=== PATIENT | male | born 1965 | race Two or more races ===

== ENCOUNTER 2020-02-11 12:17 | Outpatient (CLI) | payer OTHER | END 2020-02-11 16:47 | disposition home or self-care (01) | LOC: OFIC 805 12:17 | PROVIDERS: ATTEND Otolaryngology | DX: R51 Headache (principal); H61.23 Impacted cerumen, bilateral; R09.81 Nasal congestion; J34.2 Deviated nasal septum ==

== ENCOUNTER → 2020-03-10 | Outpatient (CLI) | payer OTHER | END | disposition home or self-care (01) | LOC: OFIC 805 11:00 | PROVIDERS: ATTEND Otolaryngology | DX: J34.2 Deviated nasal septum (principal); R09.81 Nasal congestion; G50.1 Atypical facial pain ==

== ENCOUNTER 2020-03-21 09:30 | Outpatient (CLI) | payer OTHER | END 2020-03-21 13:50 | disposition home or self-care (01) | LOC: OFIC 805 09:30 | PROVIDERS: ATTEND Otolaryngology | DX: J34.2 Deviated nasal septum (principal); R09.81 Nasal congestion; G50.1 Atypical facial pain ==

== ENCOUNTER 2021-07-19 12:05 | Outpatient (CLI) | payer OTHER | END 2021-07-19 12:11 | disposition home or self-care (01) | LOC: TOM 12:05 | PROVIDERS: ATTEND Surgery | DX: K43.2 Incisional hernia without obstruction or gangrene (principal) ==

== ENCOUNTER 2021-08-11 06:57 | Inpatient (IN) | payer OTHER ==
[~2021-08-11] VITALS: Ht 182.9 cm; Wt 120.2 kg
[~2021-08-11 06:57] MED LIST: LEVOTHYROXINE25 MC2 PO; TRIUMEQ PO; [UNRECOGNIZED DRUG - OTHER] PO
[2021-08-12] MEDS ORDERED: TRIUMEQ TABLET1 EACH (10:13)
[2021-08-12] MEDS ORDERED: FLONASE16 GM (10:13)
[2021-08-12] MEDS ORDERED: OZEMPIC0.25 MG/0. (10:13)
[2021-08-12] MEDS ORDERED: LEVOTHYROXINE75 MCG (10:13)
[2021-08-14] MEDS ORDERED: NEURONTIN600 M1 PO (14:10)
[2021-08-14] MEDS ORDERED: PERCOCET 5-3251 EACH PO (14:10)
[2021-08-14] MEDS ORDERED: POLY119PG PO (14:11)
[2021-08-14] MEDS ORDERED: PROTONIX40 MG PO (14:12)
[2021-08-14] MEDS ORDERED: DULCOLAX5 MG PO (14:12)
== END 2021-08-14 21:03 | disposition home or self-care (01) | DRG 337 ==
LOC: CIR.AMB 06:57 → SURG 20:41 → CIR.AMB 08-12 00:49 → SURG 08-12 00:49
PROVIDERS: ADMIT Surgery; ATTEND Surgery
PROC: 0WUF4JZ Supplement Abdominal Wall with Synthetic Substitute, Percutaneous Endoscopic Approach (ICD-10-PCS; 2021-08-11)
PROC: 0DNW4ZZ Release Peritoneum, Percutaneous Endoscopic Approach (ICD-10-PCS; principal; 2021-08-11 20:00)
DX: K43.2 Incisional hernia without obstruction or gangrene (principal); K66.0 Peritoneal adhesions (postprocedural) (postinfection); I10 Essential (primary) hypertension; E03.8 Other specified hypothyroidism